=== PATIENT | male | born 1975 | race Hispanic/Latino ===

== ENCOUNTER 2016-08-10 23:05 | Emergency (ER) | payer SELFPAY ==
[2016-08-10 23:18] VITALS: BP 156/101
--- NOTE | 2016-08-11 00:20 | Emergency Department Report ---
HPI - General Chief Complaint: Extremity Injury, Upper Time Seen by Provider: 08/11/16 00:00 - HPI HPI: 40-year-old male presents to the ED complaining of dog bite to to his right patient states earlier today he was playing with his dog and given the dog toy when the dog accidentally bit him. Patient states he wrapped up the wound and came to the ER. Patient states minimal to moderate bleeding. Patient able to wiggle his finger. Patient denies loss of sensation or inability to move the fingers. . Patient states his tetanus is up-to-date and dogs vaccinations are up-to- date as well. Patient denies fevers/chills/nausea/vomiting/abdominal pain or any other problems. ED Past Medical Hx - Past Medical History Previous Medical History?: Yes Additional medical history: Anxiety - Surgical History Past Surgical History?: No - Social History Smoking Status: Never Smoker Substance Use Type: None - Medications Home Medications: Home Medications Medication Instructions Recorded Confirmed Last Taken Type Acetaminophen/Codeine [Tylenol #3] 1 tab PO Q6H PRN #12 tab 08/11/16 Unknown Rx Amoxicillin/K Clav Tab [Augmentin 1 tab PO Q12HR 10 Days 08/11/16 Unknown Rx 875 mg] Ibuprofen [Motrin] 800 mg PO Q8HR PRN #30 tablet 08/11/16 Unknown Rx Neomycn/Baci Zn/Pmyx Bs/Pramox 1 applic TP TID #1 tube 08/11/16 Unknown Rx [Triple Antibiotic Plus Ointmnt] ED Review of Systems ROS: Stated complaint: FINGER LAC Other details as noted in HPI Constitutional: denies: chills, fever Eyes: denies: eye pain, eye discharge, vision change ENT: denies: ear pain, throat pain Respiratory: denies: cough, shortness of breath, SOB at rest, wheezing Cardiovascular: denies: chest pain, palpitations Endocrine: no symptoms reported Gastrointestinal: denies: abdominal pain, nausea, diarrhea Genitourinary: denies: urgency, dysuria Musculoskeletal: denies: back pain, joint swelling, arthralgia Skin: denies: rash, lesions Neurological: denies: headache, weakness, paresthesias Psychiatric: denies: anxiety, depression Hematological/Lymphatic: denies: easy bleeding, easy bruising Physical Exam - Physical Exam Vital Signs: Vital Signs 08/10/16 23:14 Temperature 99.7 F H Pulse Rate 89 Respiratory 18 Rate Blood Pressure 156/101 O2 Sat by Pulse 98 Oximetry General: Alert and oriented 3. In moderate distress due to pain from finger Physical Exam: GENERAL: Alert and oriented x3, no apparent distress, Normal Gait, atraumatic. HEAD: Head is normocephalic and a-traumatic. EYES: Extra ocular muscles are intact. Pupils are equal, round, and reactive to light and accommodation. EARS: symetrical, atraumatic, non tender, ear canal clear and moderate cerumen, tympanic membrance non inflamed. gross auditory nml bilaterally. NOSE: Nose symetrical, Nontender,Nares appeared normal. MOUTH:Mouth is well hydrated and without lesions. Tonsils nonerythematous or swollen, Uvula midline, Tongue not elevated. Mucous membranes are moist. Posterior pharynx clear, no exudate or lesions. Patent airways. NECK: Supple. Non edematous, No carotid bruits. No lymphadenopathy or thyromegaly. LUNGS: Symetrical with respiration, No wheezing, no rales or crackles, CTAB. HEART: S1, S2 present, regular rate and rhythm without murmur, no rubs, no gallops. ABDOMEN: No organomegaly was noted,Positive bowel sounds, soft, and non- distended. . Nontender to palpation on all Quadrants, NO CVA tenderness. EXTREMITIES/MUSCULOSKELETAL: No cyanosis, clubbing, rash, lesions or edema. Full ROM bilaterally. UE/LE Pulses 2+ bilaterally. LE and UE 5+ strength bilaterally NEUROLOGIC: No focal Deficit, Cranial nerves II through XII are grossly intact. No loss of sensation, No facial droop, Negative rhomberg. FINGER: Dog bite laceration from lateral fifth digit through nail bed to medial aspect of digit, Full ROM, no loss of sensation. SKIN: Warm and dry, No lesions, No ulceration or induration present. ED Course Vital Signs 08/10/16 23:14 Temperature 99.7 F H Pulse Rate 89 Respiratory 18 Rate Blood Pressure 156/101 O2 Sat by Pulse 98 Oximetry ED Medical Decision Making - Medical Decision Making 40-year-old male presents with dog bite to left fifth digit/ little finger. ED course: Patient administered 1 tablet Tylenol 3. Digital block applied to fifth digit.6 ccs of lidocaine used, Wound cleaned with Betadine and then explored and flushed with 500cc of normal saline . Wound was applied with triple antibiotic and dressed and put in a finger splint. Discussed with patient to risk for suture closure of animal bite and discussed that it was not needed. Discussed the patient follow up in 48-72 hours for wound check. Discussed with patient antibiotic therapy for the next 10-14 days. Discussed pain control with Motrin and Tylenol 3 as given. Finger intact, no loss of sensation. discussed the patient patient can return here to [facility] or clinics as referred Critical care attestation.: If time is entered above; I have spent that time in minutes in the direct care of this critically ill patient, excluding procedure time. ED Disposition Clinical Impression: Dog bite Disposition: DISCHARGED TO HOME OR SELFCARE Is pt being admited?: No Does the pt Need Aspirin: No Condition: Stable Instructions: Animal Bite (ED) Prescriptions: Acetaminophen/Codeine [Tylenol #3] 1 tab PO Q6H PRN #12 tab PRN Reason: Pain Amoxicillin/K Clav Tab [Augmentin 875 mg] 1 tab PO Q12HR 10 Days Ibuprofen [Motrin] 800 mg PO Q8HR PRN #30 tablet PRN Reason: Pain Neomycn/Baci Zn/Pmyx Bs/Pramox [Triple Antibiotic Plus Ointmnt] 1 applic TP TID #1 tube Referrals: PRIMARY CARE, [Primary Care Provider] - 3-5 Days [facility] [Outside] - 3-5 Days [facility] [Outside] - 3-5 Days [facility] [Outside] - 3-5 Days Forms: Work/School Release Form(ED), Accompanied Note Time of Disposition: 01:22
[2016-08-11] MEDS ORDERED: TYLENOL #3 PO ONE (00:22)
[2016-08-11] MEDS ORDERED: XYLOCAINE 2% INFILTRATI ONE ×2 (00:41→00:58)
[2016-08-11] MEDS ORDERED: TRIPLE ANTIBIOTIC TP ONE ×2 (00:51→00:55)
[2016-08-11] MEDS ORDERED: NACL 0.9% 500 ML IR ONE (00:52)
[2016-08-11] MEDS ORDERED: NACL 0.9% IR ONE (00:57)
== END 2016-08-11 01:30 | disposition home or self-care (01) ==
LOC: ED 23:05
DX: S61.257A Open bite of left little finger without damage to nail, initial encounter (principal); W54.0XXA Bitten by dog, initial encounter; Y93.9 Activity, unspecified; Y92.9 Unspecified place or not applicable; Y99.9 Unspecified external cause status
CPT/HCPCS: A6250